=== PATIENT | female | born 1965 | race Caucasian/White ===

== ENCOUNTER 2021-05-09 16:53 | Observation (INO) ==
--- NOTE | 2021-05-09 16:57 | Emergency Department Note ---
Impression & Plan Migraine, Acute flank pain ED Provider Note NAME: LIDIA REAGAN AGE: 55 SEX: F : 1965 ARRIVES VIA: Ambulance INFORMANT: Patient, ED PROVIDER(S): Kirt Carrera MD Chief Complaint: Headache, flank pain HPI: Patient does present with concern for headache this been ongoing for approximately 1-1/2 weeks. Patient does have a known history of migraines. Early frontal in nature. Mild photophobia. Slightly worse than usual just in terms of duration and severity. Patient did take Tylenol without much improvement in symptoms. Patient had a low-grade temperature of 100.1. Negative Covid testing Sunday. Patient is not vaccinated for Covid. Patient was referred here by her PCPs office due to concern for her symptoms. Patient has had some burning with urination ongoing for approximately 7 days. ROS: See HPI for pertinent positives and negatives. A total of 10 systems were reviewed and otherwise negative. Past medical history: See below Surgical history: See below Social history: See below Physical Exam: GENERAL: Mild uncomfortable in appearance, wearing a mask, non-toxic. EYE EXAM: Normal conjunctiva. PERRL, no anisocoria and EOM's grossly intact w/o pain. NECK: Supple, no nuchal rigidity, no adenopathy, non-tender. No signs of meningismus. Full range of motion of the neck and without stridor. LUNGS: Clear to auscultation. Normal chest wall mechanics. HEART: NSR, no MRG. ABDOMEN: Abdomen soft, sided abdominal pain, normo-active bowel sounds, no masses, no rebound or guarding. BACK: No CVA TTP. SKIN: No rashes and no bruising. UPPER EXTREMITIES: Upper extremities are grossly normal. LOWER EXTREMITIES: Grossly normal, no edema. NEURO EXAM: A&O x3, cranial nerves II-XII grossly intact, normal speech, moves all 4 extremities on command w/o issue. Differential diagnoses: Migraine headache, meningitis, sinusitis, CO exposure, ICH, SAH, infection, tumor, headache, sinus thrombosis, arterial dissection, as well as other pathologies. Course: Patient was seen and evaluated the bedside. Full history physical exam was performed. EKG interpreted by me Sinus bradycardia, rate of 57, normal intervals, normal axis, no ST changes. Imaging Studies: See Below Cardiac monitoring: An order was placed for continuous cardiac monitoring. The monitor shows a rate of 62 with sinus rhythm. MDM: Patient did present with concern for headache and flank pain. Patient did have bladder completed was treated symptomatically did have CT of the abdomen pelvis and CT head. Patient does have hypoattenuation of an area of the liver but otherwise unremarkable CT abdomen pelvis. Patient was informed of this finding and may benefit from an outpatient MRI at some time. CT had negative. Blood work unremarkable. After initial treatment patient was still feeling unwell. T he patient did undergo second round of medications. Patient was still feeling as though her headache had not resolved. I did speak with the on-call hospitalist Dr. Hurst and the patient was admitted to the medicine service. Past Med/Surg History Medical History Arthritis Asthma inhaler daily/prn - uses prn inh 2 x mo on average Bradycardia follows with Dr. Noguera Cervicalgia Cholelithiases DM type 2 (diabetes mellitus, type 2) NIDDM GERD (gastroesophageal reflux disease) Hepatic steatosis Hypercholesteremia Metabolic syndrome Migraines Surgical History History of appendectomy History of bilateral tubal ligation History of colonoscopy History of dilatation and curettage x3 History of esophagogastroduodenoscopy (EGD) 05/13/2020 Dr. Cason History of wisdom tooth extraction Hx laparoscopic cholecystectomy (05/13/20) Laparoscopic Cholecystectomy Intra-Op Esophagogastroduodenoscopy Dr. 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 Required: No Beliefs That Will Affect Care: None marital status: Current Living Situation: Parent and Family Current Living Situation Comment: Lives with mom and 2 kids current occupational status: disabled Feels Safe at Home: Yes Childhood Exposure to Second-Hand Smoke: Yes caffeine: Yes during the past year weight has: remained stable Dental Care, Regularly: No Physical Activity Frequency: Daily Seatbelt Use: always Sunscreen Use: Yes Assistive Devices: Glasses Allergies Allergies Allergy/AdvReac Type Severity Reaction Status Date / Time bee venom protein (honey bee) Allergy Severe Anaphylaxis Verified 05/09/21 17:42 Home Meds Home Medications Medication Instructions Recorded Confirmed oxybutynin chloride 10 mg 10 mg PO HS 02/27/19 05/09/21 tablet,extended release 24 hr sqbjoom-yvyqqhilfsmuw-[id number] 250 1 tab PO Q6H PRN 04/22/20 05/09/21 mg-250 mg-65 mg tablet (Excedrin Extra Strength) aspirin 81 mg tablet,delayed 81 mg PO DAILY 11/29/20 05/09/21 release (Adult Low Dose Aspirin) Previous Rx's Medication Instructions Recorded sumatriptan succinate 50 mg tablet See Rx Instructions PO .COMPLEX 03/19/19 (Imitrex) #14 tab albuterol sulfate 90 mcg/actuation 1 - 2 puff INHALATION Q6H PRN #18 g 02/01/21 aerosol inhaler (Ventolin HFA) atorvastatin 80 mg tablet 80 mg PO QPM #90 tab 02/01/21 epinephrine 0.3 mg/0.3 mL 0.3 mg IM UD PRN #1 ea 02/01/21 injection, auto-injector ezetimibe 10 mg tablet 10 mg PO DAILY #90 tab 02/01/21 fluticasone propionate 110 1 puff INHALATION BID #12 g 02/01/21 mcg/actuation HFA aerosol inhaler (Flovent HFA) metformin 500 mg tablet 500 mg PO BID #180 tab 02/01/21 montelukast 10 mg tablet 10 mg PO QPM #30 tab 02/01/21 pantoprazole 40 mg tablet,delayed 40 mg PO DAILY #30 tab 02/01/21 release Results & Data (ED) Vital Signs Vital Signs - 24 hr 05/09/21 17:03 05/09/21 17:05 05/09/21 17:30 Temperature 36.8 C Temperature Source Oral Pulse Rate 66 72 55 L Pulse Rate [Apical] Pulse Rate from SpO2 Sensor 67 55 L Pulse Rhythm Regular Pulse Strength Normal Respiratory Rate 19 15 16 Respiratory Effort / Characteristics Non-Labored Spontaneous Respiratory Depth Normal Respiratory Pattern Regular Blood Pressure 150/95 H 150/95 H 140/71 Blood Pressure [Left Arm] Blood Pressure Mean 113 113 94 Blood Pressure Mean [Left Arm] Blood Pressure Position Sitting Blood Pressure Position [Left Arm] Pulse Oximetry 95 96 95 Oxygen Delivery Method Room Air Sepsis Recent Fever Within 48 Hours No Sepsis New/Unexplained Change in Mental Status N/A Sepsis Action Taken by Nursing No Action Required 05/09/21 18:43 05/09/21 18:50 05/09/21 19:00 Temperature Temperature Source Pulse Rate 68 55 L 62 Pulse Rate [Apical] Pulse Rate from SpO2 Sensor Pulse Rhythm Pulse Strength Respiratory Rate 17 16 23 Respiratory Effort / Characteristics Respiratory Depth Respiratory Pattern Blood Pressure Blood Pressure [Left Arm] Blood Pressure Mean Blood Pressure Mean [Left Arm] Blood Pressure Position Blood Pressure Position [Left Arm] Pulse Oximetry 95 Oxygen Delivery Method Sepsis Recent Fever Within 48 Hours Sepsis New/Unexplained Change in Mental Status Sepsis Action Taken by Nursing 05/09/21 19:10 05/09/21 19:31 05/09/21 20:01 Temperature Temperature Source Pulse Rate 64 88 80 Pulse Rate [Apical] 66 Pulse Rate from SpO2 Sensor 66 86 79 Pulse Rhythm Pulse Strength Respiratory Rate 15 17 26 H Respiratory Effort / Characteristics Respiratory Depth Respiratory Pattern Blood Pressure 149/84 H 174/112 H 185/100 H Blood Pressure [Left Arm] 149/84 H Blood Pressure Mean 105 132 128 Blood Pressure Mean [Left Arm] 105 Blood Pressure Position Blood Pressure Position [Left Arm] Sitting Pulse Oximetry 96 97 97 Oxygen Delivery Method Room Air Sepsis Recent Fever Within 48 Hours Sepsis New/Unexplained Change in Mental Status Sepsis Action Taken by Nursing 05/09/21 20:30 05/09/21 21:00 05/09/21 21:30 Temperature Temperature Source Pulse Rate 72 66 68 Pulse Rate [Apical] Pulse Rate from SpO2 Sensor 72 65 71 Pulse Rhythm Pulse Strength Respiratory Rate 24 19 13 Respiratory Effort / Characteristics Respiratory Depth Respiratory Pattern Blood Pressure 180/117 H 155/112 H 160/104 H Blood Pressure [Left Arm] Blood Pressure Mean 138 126 122 Blood Pressure Mean [Left Arm] Blood Pressure Position Blood Pressure Position [Left Arm] Pulse Oximetry 95 95 97 Oxygen Delivery Method Sepsis Recent Fever Within 48 Hours Sepsis New/Unexplained Change in Mental Status Sepsis Action Taken by Usp Medications Current Medication List: was personally reviewed by me Laboratory Data Attestation: I reviewed the patient's lab results. Result diagrams: 05/10/21 06:48 05/10/21 06:48 Lab Results 05/09/21 05/09/21 05/09/21 Range/Units 19:09 19:09 19:09 WBC 7.14 (4.8-10.8) K/uL RBC 4.80 (4.2-5.4) M/uL Hgb 12.9 (12.0-16.0) g/dL Hct 39.0 (37-47) % MCV 81.3 (80-100) fL MCH 26.9 (25-34) pg MCHC 33.1 (32-36) g/dL RDW Std Deviation 41.1 (36.4-46.3) fL RDW Coeff of Babita 13.9 (11.5-14.5) % Plt Count 389 (130-400) K/uL MPV 9.2 (7.4-10.4) fL Immature Gran % (Auto) 0.1 % Neut % (Auto) 56.9 % Lymph % (Auto) 34.6 % [place] % (Auto) 7.0 % Eos % (Auto) 1.1 % Baso % (Auto) 0.3 % Neut # (Auto) 4.06 (1.4-6.5) K/uL Lymph # (Auto) 2.47 (1.2-3.4) K/uL [place] # (Auto) 0.50 (0.11-0.59) K/uL Eos # (Auto) 0.08 (0-0.5) K/uL Baso # (Auto) 0.02 (0-0.2) K/uL Immature Gran # (Auto) 0.01 (0.00-0.02) K/uL Sodium 139 (136-145) mmol/L Potassium 3.6 (3.5-5.1) mmol/L Chloride 105 (98-107) mmol/L Carbon Dioxide 26 (21-32) mmol/L Anion Gap 9.0 (3-11) BUN 9 (7-18) mg/dl Creatinine 0.68 (0.6-1.2) mg/dl Est Cr Clr Drug Dosing 95.6 ml/min Est GFR ( Amer) 115.7 ml/min Est GFR (Non-Af Amer) 99.9 ml/min BUN/Creatinine Ratio 13.3 (10-20) Glucose 97 (70-99) mg/dl Calcium 9.2 (8.5-10.1) mg/dl Total Bilirubin 0.4 (0.2-1) mg/dl AST 15 (15-37) U/L ALT 22 (12-78) U/L Alkaline Phosphatase 114 (45-117) U/L Total Protein 7.7 (6.4-8.2) gm/dl Albumin 3.7 (3.4-5.0) gm/dl Globulin 4.0 (2.5-4.0) gm/dl Albumin/Globulin Ratio 0.9 (0.9-2) Urine Color Yellow Urine Appearance Clear (Clear) Urine pH 6.5 (4.5-7.5) Ur Specific [place] 1.031 H (1.000-1.030) Urine Protein Negative (Negative) Urine Glucose (UA) Negative (Negative) Urine Ketones Trace H (Negative) Urine Blood Trace H (Negative) Urine Nitrite Negative (Negative) Urine Bilirubin Negative (Negative) Urine Urobilinogen Negative (Negative) Ur Leukocyte Esterase Negative (Negative) Urine WBC (Auto) 1-5 (0-5) /hpf Urine RBC (Auto) 5-10 H (0-4) /hpf U Hyaline Cast (Auto) 1-5 (0-5) /lpf U Epithel Cells (Auto) >30 H (0-5) /lpf Urine Bacteria (Auto) Negative (Negative) COVID-19 Eval Order SARS-CoV-2 (PCR) (Negative) 05/09/21 05/09/21 Range/Units 21:00 21:00 WBC (4.8-10.8) K/uL RBC (4.2-5.4) M/uL Hgb (12.0-16.0) g/dL Hct (37-47) % MCV (80-100) fL MCH (25-34) pg MCHC (32-36) g/dL RDW Std Deviation (36.4-46.3) fL RDW Coeff of Babita (11.5-14.5) % Plt Count (130-400) K/uL MPV (7.4-10.4) fL Immature Gran % (Auto) % Neut % (Auto) % Lymph % (Auto) % [place] % (Auto) % Eos % (Auto) % Baso % (Auto) % Neut # (Auto) (1.4-6.5) K/uL Lymph # (Auto) (1.2-3.4) K/uL [place] # (Auto) (0.11-0.59) K/uL Eos # (Auto) (0-0.5) K/uL Baso # (Auto) (0-0.2) K/uL Immature Gran # (Auto) (0.00-0.02) K/uL Sodium (136-145) mmol/L Potassium (3.5-5.1) mmol/L Chloride (98-107) mmol/L Carbon Dioxide (21-32) mmol/L Anion Gap (3-11) BUN (7-18) mg/dl Creatinine (0.6-1.2) mg/dl Est Cr Clr Drug Dosing ml/min Est GFR ( Amer) ml/min Est GFR (Non-Af Amer) ml/min BUN/Creatinine Ratio (10-20) Glucose (70-99) mg/dl Calcium (8.5-10.1) mg/dl Total Bilirubin (0.2-1) mg/dl AST (15-37) U/L ALT (12-78) U/L Alkaline Phosphatase (45-117) U/L Total Protein (6.4-8.2) gm/dl Albumin (3.4-5.0) gm/dl Globulin (2.5-4.0) gm/dl Albumin/Globulin Ratio (0.9-2) Urine Color Urine Appearance (Clear) Urine pH (4.5-7.5) Ur Specific [place] (1.000-1.030) Urine Protein (Negative) Urine Glucose (UA) (Negative) Urine Ketones (Negative) Urine Blood (Negative) Urine Nitrite (Negative) Urine Bilirubin (Negative) Urine Urobilinogen (Negative) Ur Leukocyte Esterase (Negative) Urine WBC (Auto) (0-5) /hpf Urine RBC (Auto) (0-4) /hpf U Hyaline Cast (Auto) (0-5) /lpf U Epithel Cells (Auto) (0-5) /lpf Urine Bacteria (Auto) (Negative) COVID-19 Eval Order Covid19 at [facility] SARS-CoV-2 (PCR) NEGATIVE (Negative) Administered Medications Aspirin (Aspirin 81 Mg Ectab) 81 mg PO DAILY STEWART Stop: 06/09/21 08:59 Last Admin: 05/10/21 07:59 Dose: 81 mg Documented by: [id number] Ezetimibe (Ezetimibe 10 Mg Tablet) 10 mg PO DAILY STEWART Stop: 06/09/21 08:59 Last Admin: 05/10/21 07:59 Dose: 10 mg Documented by: [id number] Fluticasone Furoate (Fluticasone Furoate 100mcg 14 Puffs/Inhaler) 1 puffs INH DAILY STEWART Stop: 06/09/21 08:59 Last Admin: 05/10/21 08:00 Dose: 1 puffs Documented by: [id number] Sodium Chloride (Nss 1000ml) 1,000 mls @ 125 mls/hr IV .Q8H STEWART Stop: 05/10/21 15:29 Last Admin: 05/10/21 08:26 Dose: 125 mls/hr Documented by: [id number] Infusion: 05/10/21 08:26 Dose: 125 mls/hr Documented by: [id number] Infusion: 05/10/21 06:26 Dose: 125 mls/hr Documented by: [id number] Admin: 05/09/21 23:33 Dose: 125 mls/hr Documented by: [id number] Pantoprazole Sodium (Pantoprazole 40 Mg Tab) 40 mg PO DAILY STEWART Stop: 06/09/21 08:59 Last Admin: 05/10/21 08:00 Dose: 40 mg Documented by: [id number] Polyethylene Glycol (Polyethylene (Miralax) 17 Gm Pack) 34 gm PO DAILY STEWART Stop: 06/09/21 08:59 Last Admin: 05/10/21 08:02 Dose: Not Given Documented by: [id number] Discontinued Medications Acetaminophen (Acetaminophen 500 Mg Tab) 1,000 mg PO NOW STA Stop: 05/09/21 17:23 Last Admin: 05/09/21 19:09 Dose: 1,000 mg Documented by: [id number] Dexamethasone Sodium Phosphate (DexamethasonePf 10 Mg/Ml Vial) 10 mg IV NOW ONE Stop: 05/09/21 17:23 Last Admin: 05/09/21 19:10 Dose: 10 mg Documented by: [id number] Dihydroergotamine Mesylate (Dihydroergotamine Mesylate 1 Mg/Ml Vial) 1 mg IM NOW ONE Stop: 05/09/21 23:46 Last Admin: 05/10/21 00:05 Dose: 1 mg Documented by: [id number] Diphenhydramine HCl (Diphenhydramine 50 Mg/Ml Vial) 25 mg IV NOW STA Stop: 05/09/21 17:23 Last Admin: 05/09/21 19:10 Dose: 25 mg Documented by: [id number] Gadobutrol (Gadobutrol 65ml Vial) 8 ml IV ONCE ONE Stop: 05/10/21 01:15 Last Admin: 05/10/21 01:15 Dose: 8 ml Documented by: [id number] Sodium Chloride (Nss 1000ml) 1,000 mls @ 999 mls/hr IV .Q1H1M STEWART Stop: 05/09/21 18:30 Last Infusion: 05/09/21 20:24 Dose: 0 mls/hr Documented by: [id number] Admin: 05/09/21 19:10 Dose: 999 mls/hr Documented by: [id number] Magnesium Sulfate/Dextrose (Magnesium Sulfate / D5w) 1 gm in 100 mls @ 100 mls/hr IV NOW ONE Stop: 05/09/21 21:30 Last Infusion: 05/09/21 21:32 Dose: 0 mls/hr Documented by: [id number] Admin: 05/09/21 21:02 Dose: 100 mls/hr Documented by: [id number] Promethazine HCl (Phenergan) 12.5 mg in 50.5 mls @ 202 mls/hr IV NOW STA Stop: 05/09/21 20:45 Last Infusion: 05/09/21 21:00 Dose: 0 mls/hr Documented by: [id number] Admin: 05/09/21 20:45 Dose: 202 mls/hr Documented by: [id number] Ketorolac Tromethamine (Ketorolac Tromethamine 15 Mg/Ml Vial) 10 mg IV NOW ONE Stop: 05/09/21 20:04 Last Admin: 05/09/21 20:11 Dose: 10 mg Documented by: [id number] Ondansetron HCl (Ondansetron Inj 2 Mg/Ml 2 Ml Vial) 4 mg IV NOW STA Stop: 05/09/21 20:04 Last Admin: 05/09/21 20:11 Dose: 4 mg Documented by: [id number] Prochlorperazine (Prochlorperazine 5 Mg/Ml 2 Ml Vial) 10 mg IV NOW STA Stop: 05/09/21 17:23 Last Admin: 05/09/21 19:10 Dose: 10 mg Documented by: [id number] Discharge Plan Visit Data Chief Complaint: Headache Stated Complaint: Headache ED Provider: Kirt Carrera ED Midlevel Provider: Barry Charles Discharge Problem: Migraine, Acute flank pain Patient Disposition: Admitted As Inpatient Discharge Instructions Interventions: ED Discharge Assessment Last Done: 05/09/21 22:55
[2021-05-09] MEDS ORDERED: diphenhydrAMINE 50 MG/ML VIAL IV STA (17:22)
[2021-05-09] MEDS ORDERED: PROCHLORPERAZINE 5 MG/ML 2 ML VIAL IV STA (17:22)
[2021-05-09] MEDS ORDERED: ACETAMINOPHEN 500 MG TAB PO STA (17:22)
[2021-05-09] MEDS ORDERED: dexAMETHasone**PF** 10 MG/ML VIAL IV ONE (17:22)
[2021-05-09] MEDS ORDERED: SODIUM CHLORIDE 0.9% 1000ML 1,000 ML IV SCH (17:30)
--- NOTE | 2021-05-09 18:47 | CT Scan Report ---
CT SCAN OF THE BRAIN WITHOUT IV CONTRAST CLINICAL HISTORY: Headache. COMPARISON STUDY: No priors. TECHNIQUE: Unenhanced axial CT scan of the brain is performed from the vertex to the skull base. A do se lowering technique was utilized adhering to the principles of ALARA. The examination is compromise d by motion artifact. FINDINGS: Brain parenchyma: There are age-related involutional changes noting mild subcortical and periventric ular white matter change. There is no hemorrhage, mass effect, or evidence of acute territorial ische nikko by CT criteria. [place]-white matter differentiation is preserved. No extra-axial fluid collection i s seen. Ventricles, sulci, cisterns: Prominent secondary to involutional change. Intracranial vasculature: There is atherosclerotic calcification of the cavernous carotid arteries. Calvarium: Unremarkable. Soft tissues: There are numerous calcified sebaceous cysts throughout the seafood farmer. Sinuses and mastoids: The visualized paranasal sinuses are clear. The mastoid air cells are well pneu matized. Orbits: The bony orbits are grossly intact. IMPRESSION: There is no hemorrhage, mass effect, or evidence of acute territorial ischemia by CT crit timothy noting a motion degraded examination. ACT 112: Negative or not required by law. Electronically signed by: Nathen Carrington M.D. 05/09/2021 6:46 PM
--- NOTE | 2021-05-09 18:59 | CT Scan Report ---
CT SCAN OF THE ABDOMEN AND PELVIS WITHOUT IV CONTRAST CLINICAL HISTORY: Right flank pain. COMPARISON STUDY: Abdominal CT dated 04/22/2020. TECHNIQUE: CT scan of the abdomen and pelvis is performed from the lung bases to the proximal femora. Images are reviewed in the axial, sagittal, and coronal planes. IV contrast was not administered for this examination. A dose lowering technique was utilized adhering to the principles of ALARA. CT DOSE: 1766.23 mGy.cm FINDINGS: Lung bases: The heart is top normal in size and without pericardial effusion. The lung bases are oz r noting dependent atelectasis. There is a moderate hiatal hernia. Liver: The unenhanced liver is normal in size, contour, and attenuation. There is no intrahepatic donnell iary ductal dilatation. Question artifact versus a subtle 2.4 cm lesion in the left lobe of liver see n on image #105. Gallbladder: Surgically absent noting clips in the gallbladder fossa. Spleen: Normal in size and attenuation. Pancreas: Unremarkable. Adrenal glands: A 2.5 cm left adrenal adenoma is unchanged. The right adrenal gland is normal in appe arance. Kidneys: The unenhanced kidneys are normal in size and without hydronephrosis. There are no renal urmila culi identified. There is no evidence of contour deforming renal mass lesion. Abdominal vasculature: The abdominal aorta is normal in course and caliber. Bowel: There is no bowel obstruction. Mild fecal retention is seen throughout the colon. The appendix is not identified and reported surgically absent Peritoneum: There is no intraperitoneal free air or abdominal ascites. There is a fat-containing umbi lical hernia. Lymphadenopathy: None. Pelvic viscera: The bladder, uterus, and adnexa are normal as visualized. There is a fat-containing r ight inguinal hernia. Skeletal structures: No lytic or blastic lesions are seen. IMPRESSION: 1. There are no acute infectious or inflammatory findings in the abdomen or pelvis. 2. Question artifact versus a 2.4 cm low-attenuation lesion within the left lobe of the liver. Noneme rgent follow-up with a contrast-enhanced liver protocol MRI is recommended for further evaluation. ACT 112: Positive. There are findings on this exam that require communication between the performing entity and the patient following Patient Test Result Information Act ([place] Act 112) guidelines. Electronically signed by: Nathen Carrington M.D. 05/09/2021 6:57 PM
[2021-05-09 19:25] LABS: Appearance Urine Clear (Clear); Bacteria Urine Automated Negative (Negative); Bilirubin Urine Negative (Negative); Blood Urine Trace (Negative); Color Urine Yellow; Epithelial Cell Urine Auto >30 /lpf (0-5); Glucose Urine UA Negative (Negative); Ketones Urine Trace (Negative); Leukocyte Esterase Urine Negative (Negative); Nitrite Urine Negative (Negative); Protein Urine Negative (Negative); Specific Gravity Urine 1.031 (1.000-1.030); Urobilinogen Urine Negative (Negative); pH Urine 6.5 (4.5-7.5)
[2021-05-09 19:27] LABS: Basophils # (auto) 0.02 K/uL (0-0.2); Basophils % (auto) 0.3 %; Eosinophils # (auto) 0.08 K/uL (0-0.5); Eosinophils % (auto) 1.1 %; Hemoglobin 12.9 g/dL (12.0-16.0); Immature Granulocytes # (auto) 0.01 K/uL (0.00-0.02); Immature Granulocytes % (auto) 0.1 %; Lymphocytes # (auto) 2.47 K/uL (1.2-3.4); Lymphocytes % (auto) 34.6 %; Mean Corpuscular Hemoglobin 26.9 pg (25-34); Mean Corpuscular Hgb Conc 33.1 g/dL (32-36); Mean Corpuscular Volume 81.3 fL (80-100); Mean Platelet Volume 9.2 fL (7.4-10.4); Neutrophils # (auto) 4.06 K/uL (1.4-6.5); Neutrophils % (auto) 56.9 %; Platelet Count 389 K/uL (130-400); RDW Coefficient of Variation 13.9 % (11.5-14.5); RDW Standard Deviation 41.1 fL (36.4-46.3); White Blood Count 7.14 K/uL (4.8-10.8)
[2021-05-09 19:53] LABS: Albumin Level 3.7 gm/dl (3.4-5.0); BUN Creatinine Ratio 13.3 (10-20); Calcium 9.2 mg/dl (8.5-10.1); Creatinine Clr Calc Pharmacy 95.6 ml/min; Est GFR (African American) 115.7 ml/min; Est GFR (Non-African American) 99.9 ml/min; Potassium 3.6 mmol/L (3.5-5.1)
[2021-05-09 19:56] LABS: Albumin Globulin Ratio 0.9 (0.9-2); Bilirubin,Total 0.4 mg/dl (0.2-1); Total Protein 7.7 gm/dl (6.4-8.2)
[2021-05-09] MEDS ORDERED: KETOROLAC TROMETHAMINE 15 MG/ML VIAL IV ONE (20:03)
[2021-05-09] MEDS ORDERED: ONDANSETRON INJ 2 MG/ML 2 ML VIAL IV STA (20:03)
[2021-05-09] MEDS ORDERED: PROMETHAZINE 12.5 MG/50.5 ML BAG IV STA (20:31)
[2021-05-09] MEDS ORDERED: MAGNESIUM SULFATE / D5W 1 GM/100 ML BAG IV ONE (20:31)
--- NOTE | 2021-05-09 22:29 | History & Physical Report ---
Date of Service May 09, 2021 Assessment & Plan (1) Migraine headache: Plan: 55 yo F w/ pMHx. of metabolic syndrome, hiatal hernia, hepatic steatosis, hypercholesterolemia, GERD, asthma, arthritis, prediabetes, and migraines presenting with severe unilateral persistent headache and intermittent severe abdominal pain Migraine, similar to prior (meets criteria with unilateral pain severe intensity and associated nausea/vomiting and photophobia) Patient has decreased sensation of the face (CN-V) on the right side as well as decreased hearing (CN-VIII) Deferential includes dural venous sinus thrombosis and stroke initially treated with Tylenol, Benadryl, Toradol, Mg., 1L IVF, Prochlorperazine, Promethazine and Zofran CT head w/o contrast: no acute intracranial findings EKG with sinus bradycardia - started DHE 1mg IM could repeat Q1H up to 3 doses - Toradol PRN Q6H - IVF 125/hr. X2 bags - ordered MRI w & w/o and MRV - consider Neurology consult if unable to break migraine overnight - consider outpatient neurology referral / referral to a headache specialist to work on education and control of headaches going forward - would likely benefit from having a triptan available and using early in her headache course going forward - consider completing a MIDAS questionnaire when the patient is not in acute pain to determine the severity of disability RUQ abdominal pain potentially secondary to migraine vs. constipation as she has a history and LBM 4 days prior vs. nephrolithiasis supported by blood in her urine but no signs of a stone on CT makes it less likely or a small non-obstructing stone UA with blood and RBC CT a/p: no acute infectious or inflammatory findings - treating migraine as above - Miralax STEWART and PRN - strain urine - re-checking CMP, lipase with AM labs Incidental liver lesion CT a/p: 2.4 cm low attenuation lesion in the left lobe of the liver - will require a contrast enhanced MRI to follow up at some point, likely outpatient Prediabetes - holding oral agent - monitor blood sugars for now and if persistently elevated start SSI Reflux - continue pantoprazole Hypercholesteremia - continue Atorvastatin Asthma - continue home controller medication Incontinence - continue oxybutynin Code: Full Diet: Carb consistent with DM II DVT: SCD's and ambulation (2) Metabolic syndrome: (3) Prediabetes: (4) Incontinence in female: (5) Hiatal hernia: (6) Hepatic steatosis: (7) Hypercholesteremia: (8) Asthma: (9) Arthritis: History of Present Illness Chief Complaint: Headache Primary Care Provider: Anisa Samano DO Ibeth lawson is a 55-year-old female with a past medical history of metabolic syndrome, hiatal hernia, hepatic steatosis, hypercholesterolemia, GERD, asthma, arthritis, prediabetes, and migraines presenting with headache and abdominal pain. She has had a headache for over a week. She has had migraines for, "several years" and her pain is currently 9/10 on the right sided and frontal. She did not have any floaters or bright lights in her vision but does note that she has burred vision that developed after the headache started. She has mild photophobia. She has noted worsening severity and duration of her headaches. She does not currently see neurology or a headache specialist. She has Sumatriptan on her medication list but states that she did not take this and has only tried Tylenol prior to coming in. She does not know of any triggers for her headaches. She has had headaches that have lasted up to a month previously, in July. Patient also notes that she has abdominal pain that started one day prior. She notes the pain in her RUQ 9/10 intermittent and lasts about 10 minutes at a time. She has vomited 6 times, 5 prior to coming in and once here in the ER. She noted that she had some small amount of blood when she vomited. She has had constipation in the past and she had a bowel movement in the ER but prior to that her LBM was on Sunday. She admits some upper respiratory symptoms that started on Sunday. She was seen in urgent care and was tested and negative for COVID. She was vaccinated against COVID with her second shot in January. Social denies tobacco use denies sig. ETOH use denies rec. drug use Sig. surgical Hx. appendectomy cholecystectomy ED course: Tylenol, Benadryl, Toradol, Mg., 1L IVF, Prochlorperazine, Promethazine and Zofran Allergies Allergy/AdvReac Type Severity Reaction Status Date / Time bee venom protein (honey bee) Allergy Severe Anaphylaxis Verified 05/09/21 17:42 Home Medications Medication Instructions Recorded Confirmed Type oxybutynin chloride 10 mg 10 mg PO HS 02/27/19 05/09/21 History tablet,extended release 24 hr sumatriptan succinate 50 mg tablet See Rx Instructions PO .COMPLEX 03/19/19 05/09/21 Rx (Imitrex) #14 tab [id number] 250 1 tab PO Q6H PRN 04/22/20 05/09/21 History mg-250 mg-65 mg tablet (Excedrin Extra Strength) aspirin 81 mg tablet,delayed 81 mg PO DAILY 11/29/20 05/09/21 History release (Adult Low Dose Aspirin) albuterol sulfate 90 mcg/actuation 1 - 2 puff INHALATION Q6H PRN #18 g 02/01/21 05/09/21 Rx aerosol inhaler (Ventolin HFA) atorvastatin 80 mg tablet 80 mg PO QPM #90 tab 02/01/21 05/09/21 Rx epinephrine 0.3 mg/0.3 mL 0.3 mg IM UD PRN #1 ea 02/01/21 05/09/21 Rx injection, auto-injector ezetimibe 10 mg tablet 10 mg PO DAILY #90 tab 02/01/21 05/09/21 Rx fluticasone propionate 110 1 puff INHALATION BID #12 g 02/01/21 05/09/21 Rx mcg/actuation HFA aerosol inhaler (Flovent HFA) metformin 500 mg tablet 500 mg PO BID #180 tab 02/01/21 05/09/21 Rx montelukast 10 mg tablet 10 mg PO QPM #30 tab 02/01/21 05/09/21 Rx pantoprazole 40 mg tablet,delayed 40 mg PO DAILY #30 tab 02/01/21 05/09/21 Rx release Past Med/Surg History Medical History Arthritis Asthma inhaler daily/prn - uses prn inh 2 x mo on average Bradycardia follows with Dr. Noguera Cervicalgia Cholelithiases DM type 2 (diabetes mellitus, type 2) NIDDM GERD (gastroesophageal reflux disease) Hepatic steatosis Hypercholesteremia Metabolic syndrome Migraines Surgical History History of appendectomy History of bilateral tubal ligation History of colonoscopy History of dilatation and curettage x3 History of esophagogastroduodenoscopy (EGD) 05/13/2020 Dr. Cason History of wisdom tooth extraction Hx laparoscopic cholecystectomy (05/13/20) Laparoscopic Cholecystectomy Intra-Op Esophagogastroduodenoscopy Dr. Cason 05/13/2020 Nausea and vomiting after administration of anesthetic agent Family History Father Myocardial infarction Aunt Lung cancer Other No family history of adverse response to anesthesia Denies family history of Ovarian cancer Prostate cancer Breast cancer Colorectal cancer Social History Smoking Status: Never smoker Second Hand Exposure: No; Hx Alcohol Use: No Hx Substance Use: No Preferred Language: Swedish Communication Ability: Effective Visual Impairment: Limited Hearing Ability: Normal [employer] Tra[employer] Required: No Beliefs That Will Affect Care: None marital status: Current Living Situation: Parent and Family Current Living Situation Comment: Lives with mom and 2 kids current occupational status: disabled Other Information That Helps Us Care for You: No Feels Safe at Home: Yes Safety Concerns: Feels Safe At This Time Childhood Exposure to Second-Hand Smoke: Yes caffeine: Yes during the past year weight has: remained stable Dental Care, Regularly: No Physical Activity Frequency: Daily Seatbelt Use: always Sunscreen Use: Yes Assistive Devices: Glasses Review of Systems Review of Systems: Constitutional: denies fever, weight loss admits chills, nausea, vomiting, diaphoresis, night sweats Head: denies trauma, LOC, confusion admits headache, lightheadedness, vision changes Neurologic: denies syncope, slurring of speech, focal weakness admits presyncope ENT: admits chronic vertigo, rhinorrhea, stuffiness, sneezing, sore throat Cardiac: denies palpitations, leg swelling, orthopnea admits chest pain (relates to hiatal hernia) Pulm.: denies shortness of breath, sputum production admits cough GI: admits constipation and blood in stool (relates to constipation) : denies blood in stool admits urgency, frequency, dysuria Physical Exam Constitutional: + lethargic; no acute distress Eyes: PERRL, conjunctivae normal, anicteric sclerae - squinting eyes during exam ENMT: Ears: no external ear abnormality Nose: no external nose abnormality Mouth: no oropharynx abnormality Neck: normal visual inspection Respiratory: normal respiratory effort, lungs clear to auscultation Cardiovascular: RRR, no murmur, no edema Gastrointestinal (Abdomen): - guarding - soft - tender to palpation throughout abdomen - point of most pain is RUQ - tender in her back and CVA bilaterally R>L Skin: no rashes, warm and dry Neurologic: - decreased sensation of the left face - decreased auditory sensation on the right Psychiatric: Orientation: alert and oriented x 3 Results & Data Results & Data ([facility]) Vital Signs (Past 12 Hours) Vital Signs Temp Pulse Pulse Resp BP BP Pulse Ox 05/09/21 21:30 68 13 160/104 H 97 05/09/21 21:00 66 19 155/112 H 95 05/09/21 20:30 72 24 180/117 H 95 05/09/21 20:01 80 26 H 185/100 H 97 05/09/21 19:31 88 17 174/112 H 97 05/09/21 19:10 64 66 15 149/84 H 149/84 H 96 05/09/21 19:00 62 23 05/09/21 18:50 55 L 16 95 05/09/21 18:43 68 17 05/09/21 17:30 55 L 16 140/71 95 05/09/21 17:05 36.8 C 72 15 150/95 H 96 05/09/21 17:03 66 19 150/95 H 95 Code Status & VTE Plan VTE Prophylaxis Plan VTE Prophylaxis will be ordered: Yes
[2021-05-09] MEDS ORDERED: POLYETHYLENE (MIRALAX) 17 GM PACK PO PRN (23:17)
[2021-05-09] MEDS ORDERED: ACETAMINOPHEN 325 MG TAB PO PRN (23:17)
[2021-05-09] MEDS: SODIUM CHLORIDE 0.9% 1000ML 1,000 ML IV SCH (23:33)
[2021-05-09] MEDS ORDERED: DIHYDROERGOTAMINE MESYLATE 1 MG/ML VIAL IM ONE (23:45)
[2021-05-10] MEDS ORDERED: GLUCOSE 10 TABS/TUBE PO PRN (00:48)
[2021-05-10] MEDS ORDERED: GLUCOSE 40% GEL 15 GM TUBE PO PRN (00:48)
[2021-05-10] MEDS ORDERED: DEXTROSE 50% 50 ML SYRINGE IV PRN (00:48)
[2021-05-10] MEDS ORDERED: CARBOHYDRATES FOR HYPOGLYCEMIA PO PRN (00:48)
[2021-05-10] MEDS ORDERED: GLUCAGON FOR INJ 1 MG VIAL SQ PRN (00:48)
[2021-05-10] MEDS ORDERED: GADOBUTROL 65ML VIAL IV ONE (01:14)
[2021-05-10] MEDS ORDERED: KETOROLAC TROMETHAMINE 15 MG/ML VIAL IV PRN (02:00)
[2021-05-10] MEDS ORDERED: ONDANSETRON INJ 2 MG/ML 2 ML VIAL IV PRN (02:00)
--- NOTE | 2021-05-10 07:16 | Magnetic Resonance Report ---
MR VENOGRAM OF THE BRAIN CLINICAL HISTORY: Headache. COMPARISON STUDY: MRI of the brain performed concurrently on 05/10/2021. TECHNIQUE: Sagittal MR venogram of the brain is performed. 3-D reformats are created and assessed. IV contrast was not administered for this examination. FINDINGS: The dural venous sinuses are widely patent, with no evidence of sinus thrombosis. The super ior sagittal sinus is clear, as are the transverse and sigmoid sinuses. Normal flow voids are maintai onofre within the internal jugular veins. IMPRESSION: Normal MR venogram of the brain. Electronically signed by: Nathen Carrington M.D. 05/10/2021 7:15 AM
[2021-05-10 07:19] LABS: Hematocrit (blood only) 40.6 % (37-47); Hemoglobin 13.2 g/dL (12.0-16.0); Immature Granulocytes # (auto) 0.01 K/uL (0.00-0.02); Immature Granulocytes % (auto) 0.2 %; Lymphocytes # (auto) 1.01 K/uL (1.2-3.4); Mean Corpuscular Hemoglobin 27.2 pg (25-34); Mean Corpuscular Hgb Conc 32.5 g/dL (32-36); Mean Corpuscular Volume 83.7 fL (80-100); Mean Platelet Volume 9.6 fL (7.4-10.4); Monocytes # (auto) 0.08 K/uL (0.11-0.59); Monocytes % (auto) 1.3 %; Neutrophils # (auto) 4.83 K/uL (1.4-6.5); Neutrophils % (auto) 81.5 %; Platelet Count 401 K/uL (130-400); RDW Coefficient of Variation 13.9 % (11.5-14.5); RDW Standard Deviation 42.5 fL (36.4-46.3); Red Blood Count 4.85 M/uL (4.2-5.4); White Blood Count 5.93 K/uL (4.8-10.8)
[2021-05-10 07:55] LABS: Albumin Level 3.4 gm/dl (3.4-5.0); BUN Creatinine Ratio 13.1 (10-20); Calcium 8.5 mg/dl (8.5-10.1); Creatinine Clr Calc Pharmacy 106.2 ml/min; Est GFR (Non-African American) 103.5 ml/min
[2021-05-10 07:58] LABS: Albumin Globulin Ratio 0.9 (0.9-2); Bilirubin,Total 0.3 mg/dl (0.2-1); Globulin 3.9 gm/dl (2.5-4.0); Total Protein 7.3 gm/dl (6.4-8.2)
[2021-05-10] MEDS: SODIUM CHLORIDE 0.9% 1000ML 1,000 ML IV SCH (08:26)
--- NOTE | 2021-05-10 08:43 | Magnetic Resonance Report ---
MRI OF THE BRAIN WITHOUT AND WITH IV CONTRAST CLINICAL HISTORY: headache COMPARISON STUDY: May 10, 2021 TECHNIQUE: MRI of the brain was performed from the vertex to the skull base utilizing various T1 and T2 weighted sequences. Following the IV administration of 8 mL of Gadavist contrast, additional enhan haim images were obtained. FINDINGS: Sagittal T1, axial diffusion, proton density and T2 weighted axial, coronal FLAIR, and pre and post a xial T1-weighted images were acquired. These were supplemented with post gadolinium coronal T1 weight ed images. No intra or extra-axial mass lesions are visualized. Axial diffusion-weighted images reveal no evidence of acute or subacute infarction. Mild diffuse atrophic changes of brain parenchyma is seen. Small CSF signal lesion is seen within the right periventricular white matter (5/15) and might represent lacunar infarct. There is no evidence of ventricular dilatation. Proton density T2-weighted and FLAIR images reveal multiple foci of increased T2 signal within the wh ite matter, which is nonspecific, could be on a small vessel basis however appear to prominent for pa tient's age group. There are no abnormal flow voids. There is no evidence of pathologic enhancement. There are multiple low signal lesions are seen within scalp which shows decreased T1 and T2 signal an d show no evidence of enhancement after intravenous contrast administration. IMPRESSION: No acute intracranial hemorrhage, no midline shift or space occupying lesions. Mild diffuse atrophic changes of brain parenchyma. No evidence of restricted diffusion to suggest acute ischemia or infarct. Patchy areas of increased T2 FLAIR signal within periventricular and subcortical white matter seen bi laterally. Possible lacunar infarct within right periventricular white matter. Multiple focal areas of low signal within scalp, could represent calcified or fibrotic subcutaneous n odules. Please correlate this findings with direct inspection and prior history of developmental diso rder. ACT 112: Negative or not required by law. The above report was generated using voice recognition software. It may contain grammatical, syntax o r spelling errors. Electronically signed by: Radha Lee DO 05/10/2021 8:42 AM
[2021-05-10] MEDS ORDERED: ASPIRIN 81 MG ECTAB PO SCH (09:00)
[2021-05-10] MEDS ORDERED: POLYETHYLENE (MIRALAX) 17 GM PACK PO SCH (09:00)
[2021-05-10] MEDS ORDERED: EZETIMIBE 10 MG TABLET PO SCH (09:00)
[2021-05-10] MEDS ORDERED: FLUTICASONE FUROATE 100MCG 14 PUFFS/INHALER INH SCH (09:00)
[2021-05-10] MEDS ORDERED: PANTOprazole 40 MG TAB PO SCH (09:00)
--- NOTE | 2021-05-10 10:23 | Hospitalist Progress Note ---
Date of Service May 10, 2021 Assessment & Plan Admission and Anticipated Discharge Date Admission Date: May 09, 2021 Results & Data Results & Data ([facility]) Vital Signs (Past 12 Hours) Vital Signs Temp Pulse Pulse Pulse Resp BP Pulse Ox 05/10/21 07:00 36.5 C 62 18 143/84 H 94 05/10/21 06:18 60 05/10/21 04:03 36.5 C 57 L 18 125/78 94 05/10/21 00:00 66 05/09/21 23:04 36.5 C 63 18 137/84 92 05/09/21 22:55 98 Resident Activity Tracking Resident Involvement: Resident Care Provided Care Provided: Adult Hospital Medicine
--- NOTE | 2021-05-10 12:50 | Discharge Summary ---
Date of Service May 10, 2021 Admission HPI Per Admitting Provider Ibeth lawson is a 55-year-old female with a past medical history of metabolic syndrome, hiatal hernia, hepatic steatosis, hypercholesterolemia, GERD, asthma, arthritis, prediabetes, and migraines presenting with headache and abdominal pain. She has had a headache for over a week. She has had migraines for, "several years" and her pain is currently 9/10 on the right sided and frontal. She did not have any floaters or bright lights in her vision but does note that she has burred vision that developed after the headache started. She has mild photophobia. She has noted worsening severity and duration of her headaches. She does not currently see neurology or a headache specialist. She has Sumatriptan on her medication list but states that she did not take this and has only tried Tylenol prior to coming in. She does not know of any triggers for her headaches. She has had headaches that have lasted up to a month previously, in July. Patient also notes that she has abdominal pain that started one day prior. She notes the pain in her RUQ 9/10 intermittent and lasts about 10 minutes at a time. She has vomited 6 times, 5 prior to coming in and once here in the ER. She noted that she had some small amount of blood when she vomited. She has had constipation in the past and she had a bowel movement in the ER but prior to that her LBM was on Sunday. She admits some upper respiratory symptoms that started on Sunday. She was seen in urgent care and was tested and negative for COVID. She was vaccinated against COVID with her second shot in January. Social denies tobacco use denies sig. ETOH use denies rec. drug use Sig. surgical Hx. appendectomy cholecystectomy ED course: Tylenol, Benadryl, Toradol, Mg., 1L IVF, Prochlorperazine, Promethazine and Zofran Admission Exam Per Admitting Provider Constitutional: + lethargic; no acute distress Eyes: PERRL, conjunctivae normal, anicteric sclerae - squinting eyes during exam ENMT: Ears: no external ear abnormality Nose: no external nose abnormality Mouth: no oropharynx abnormality Neck: normal visual inspection Respiratory: normal respiratory effort, lungs clear to auscultation Cardiovascular: RRR, no murmur, no edema Gastrointestinal (Abdomen): - guarding - soft - tender to palpation throughout abdomen - point of most pain is RUQ - tender in her back and CVA bilaterally R>L Skin: no rashes, warm and dry Neurologic: - decreased sensation of the left face - decreased auditory sensation on the right Psychiatric: Orientation: alert and oriented x 3 Principal Diagnosis Migraine Discharge Exam General: Well appearing, age appropriate Heart: RRR, +S1 S2, no murmurs/gallops/rubs Lungs: cta b/l, no wheezes/rales/rhonchi Abd: soft, NT/ND, +BS Extremities: no swelling, no rashes HEENT: PERRLA, negative facial droop Discharge Data Allergies Allergy/AdvReac Type Severity Reaction Status Date / Time bee venom protein (honey bee) Allergy Severe Anaphylaxis Verified 05/09/21 17:42 Consultations 05/09/21 20:31 ED Decision to Admit Stat Ordered Studies 05/09/21 17:22 CT head/brain wo con Stat 05/09/21 17:54 CT abd pelvis wo con Stat 05/10/21 00:23 MR brain wo/w con Routine 05/10/21 00:24 MR venography head wo con Routine Hospital Course (1) Migraine headache: 55 yo F w/ pMHx. of metabolic syndrome, hiatal hernia, hepatic steatosis, hypercholesterolemia, GERD, asthma, arthritis, prediabetes, and migraines presenting with severe unilateral persistent headache and intermittent severe abdominal pain Migraine Similar to prior (meets criteria with unilateral pain severe intensity and associated nausea/vomiting and photophobia). Patient had decreased sensation of the face on the right side as well as decreased hearing. Initially treated with Tylenol, Benadryl, Toradol, Mg., 1L IVF, Prochlorperazine, Promethazine, DHE and Zofran. CT head w/o contrast: no acute intracranial findings, EKG with sinus bradycardia, Head/Brain MRI Venogram normal, Brain MRI no acute bleeds with possible lacunar infarct. Patient's migraine resolved. Patient was prescribed sumatriptan, to take early in her headache course. Patient was advised to follow up with her PCP, and to keep a migraine diary. Patient may also benefit from seeing outpatient neurology to work on education and control of headaches going forward. RUQ abdominal pain and Nausea/Vomitting UA with blood and RBC. CT a/p: no acute infectious or inflammatory findings. Patient was given miralax, her migraine was treated and resolved, she no longer complains of abdominal pain, nausea, vomitting. -Should have outpatient repeat UA. Incidental liver lesion CT a/p: 2.4 cm low attenuation lesion in the left lobe of the liver, will require a contrast enhanced MRI to follow up in outpatient Prediabetes Continue metformin GERD Continue pantoprazole Hypercholesteremia Continue Atorvastatin Asthma Continue home controller medication Incontinence Continue oxybutynin (2) Metabolic syndrome: (3) Prediabetes: (4) Incontinence in female: (5) Hiatal hernia: (6) Hepatic steatosis: (7) Hypercholesteremia: (8) Asthma: (9) Arthritis: Total Time Total Time Spent Total Time Spent (In Minutes): See attending attestation Discharge Plan Discharge Items Patient Disposition: Home - Self-Care Reason For Visit: MIGRAINE Discharge Diagnosis: Migraine Activity: Resume your previous activity Non-emergency contact: Primary Care Provider Call non-emergency contact if: your symptoms worsen, your pain is worsening and you have a fever Follow-up/Referrals: Anisa Samano DO [Primary Care Provider] - 05/23/21 9:20 am Diet: Regular Addtl Attending Provider Instructions: You were admitted to the hospital for Migraine. We imaged your head and did not find any bleeding or strokes. You were treated with a combination of migraine, pain, and nausea medication, and your migraine resolved. Please keep a diary of what days you have your migraine, what might have brought it on, and how long it lasts. Bring this diary with you when you next see your family doctor, as this will help your doctor decide what treatments may work best for you. A discharge summary will be sent to your primary care physician to ensure continuity of care. Please bring this discharge summary with you to your next office appointment so that your provider can review it at that time. Follow-up appointments: Make a follow-up appointment with your PCP within the next week. It is very important that you follow up with them shortly after discharge from the hospital. Keep all your follow-up appointments as already scheduled. If you cannot make an appointment, notify your provider. Medications: Your medication list has been reviewed and reconciled upon discharge to ensure accuracy and continuity of care. An updated list of all your medications is included with your hospital discharge paperwork. Please review this list closely, and make note of any changes. * We sent a medication called Sumitriptan to your pharmacy. Take Sumatriptan 50mg one tablet when you feel your migraine come on. If your migraine does not resolve, you can take another pill in 2 hours. You can take up to 4 pills a day. Take your medications as instructed; do not skip a dose of your medicines. Make sure all of your doctors know every medicine you are taking (including xxje-fkc-ergljin medicines, vitamins, and supplements). Call your primary care provider before taking any new medicines (including ahdm-kun-jvfrjix medicines, vitamins, and supplements), because some of these may interact with your current medications, or may make your symptoms worse. Tell your primary care provider if you cannot afford your medications. CONTACT YOUR PRIMARY CARE PROVIDER if you experience any of the following: Severe headache that does not go away Loss of vision, loss of sensation to skin, or loss of control of muscles Difficulty following your treatment plan, or difficulty taking medications CALL 911 OR GO TO THE EMERGENCY DEPARTMENT if you experience any of the following: Sudden, severe abdominal pain or nausea/vomiting Severe chest pain, or chest pain that radiates (moves) to your jaw or arm Sudden, severe shortness of breath or difficulty breathing Thank you for allowing us to participate in your care. Pending Studies at Discharge: No Stand-Alone Forms: [facility] [employer], Smoking Cessation Medications and DC Order Prescriptions: Continued epinephrine 0.3 mg/0.3 mL auto-injector 0.3 mg IM UD PRN (Reason: Allergic Reaction) Qty: 1 RF: 1 albuterol sulfate [Ventolin HFA] 90 mcg/actuation HFA aerosol inhaler 1 - 2 puff INHALATION Q6H PRN (Reason: Shortness Of Breath) Qty: 18 RF: 3 atorvastatin 80 mg tablet 80 mg PO QPM Qty: 90 RF: 1 ezetimibe 10 mg tablet 10 mg PO DAILY Qty: 90 RF: 1 Flovent HFA 110 mcg/actuation HFA aerosol inhaler 1 puff INHALATION BID Qty: 12 RF: 1 metformin 500 mg tablet 500 mg PO BID Qty: 180 RF: 4 montelukast 10 mg tablet 10 mg PO QPM Qty: 30 RF: 2 pantoprazole 40 mg tablet,delayed release (DR/EC) 40 mg PO DAILY Qty: 30 RF: 2 aspirin [Adult Low Dose Aspirin] 81 mg tablet,delayed release (DR/EC) 81 mg PO DAILY RF: 0 Excedrin Extra Strength 250-250-65 mg Tablet 1 tab PO Q6H PRN (Reason: Headache) RF: 0 oxybutynin chloride 10 mg Tablet Extended Release 24hr 10 mg PO HS RF: 0 Hold Instructions: hold for new trial of med Changed sumatriptan succinate [Imitrex] 50 mg tablet See Rx Instructions PO .COMPLEX PRN (Reason: migraine headache) Qty: 30 RF: 0 Discharge Orders: Discharge Order (Routine); Ordered 05/10/21 Ordered By: Anastacia Temple Admission Data Admit Date/Time: 05/09/21 22:02 Attending Provider: Marsha Maynard Admit Provider: Maksim Hines Primary Care Provider: Anisa Samano Other Providers: Crystal Hurst Other Interventions: Discharge Summary Assessment (RN) Last Done: 05/10/21 13:12 Supervising Physician Co-Signing Physician Notes Resident Physician Supervision Note: I independently interviewed and examined the patient and verified the everett history and physical, reviewed labs and image studies and agree with resident Dr. Temple findings and care plan. Resident Activity Tracking Resident Involvement: Resident Care Provided Care Provided: Adult Hospital Medicine
--- NOTE | 2021-05-10 13:29 | Electrocardiogram Report ---
Test Reason : Blood Pressure : / mmHG Vent. Rate : 057 BPM Atrial Rate : 057 BPM P-R Int : 192 ms QRS Dur : 092 ms QT Int : 474 ms P-R-T Axes : 044 000 041 degrees QTc Int : 461 ms Sinus bradycardia Otherwise normal ECG No previous ECGs available Confirmed by Robin Toro ([id number]) on 05/10/2021 1:29:06 PM Referred By: REFERRED SELF Confirmed By:Robin Toro
[2021-05-10] MEDS ORDERED: MONTELUKAST SODIUM 10 MG TABLET PO SCH (21:00)
[2021-05-10] MEDS ORDERED: ATORVASTATIN 40 MG TAB PO SCH (21:00)
[2021-05-10] MEDS ORDERED: OXYBUTYNIN CHLORIDE XL 5 MG TABCR PO SCH (21:00)
--- NOTE | 2021-05-11 04:40 | Billing Data ---
Date of Service May 09, 2021 Coding Level of Care Code INT OBSERVATION CARE 50M LVL 2
== END 2021-05-10 14:01 | disposition home or self-care (01) ==
LOC: 2W 16:53 → ED 16:53 → SUATTDRO 22:02 → 2W 22:55